=== PATIENT | female | born 2005 | race Caucasian/White ===

== ENCOUNTER 2024-01-08 12:24 | Emergency (ER) | payer MEDICAID ==
[~2024-01-08] VITALS: Ht 152.4 cm; Wt 45.6 kg
[2024-01-08 12:44] VITALS: BP 113/75; PULSE 75; RESP 16; TEMP 98.6; O2SAT 98
[2024-01-08] MEDS: ACETAMINOPHEN 325 MG TAB PO ONE (13:21)
[2024-01-08] MEDS ORDERED: BACI-418 TP (13:22)
[2024-01-08 13:31] VITALS: BP 113/75; PULSE 75; RESP 16; TEMP 98.6; O2SAT 98
== END 2024-01-08 13:32 | disposition home or self-care (01) ==
LOC: MED 12:24
DX: S60.417A Abrasion of left little finger, initial encounter (principal); W26.8XXA Contact with other sharp object(s), not elsewhere classified, initial encounter; Y93.89 Activity, other specified; Y92.89 Other specified places as the place of occurrence of the external cause; Y99.8 Other external cause status
CPT/HCPCS: 90471; 90715; 99283